=== PATIENT | male | born 1950 | race Caucasian/White ===

== ENCOUNTER 2020-07-04 15:23 | Emergency (ER) | payer BC, MEDICAID ==
[~2020-07-04] VITALS: Ht 165.1 cm; Wt 42.0 kg
[~2020-07-04 15:23] MED LIST: COMBIV
[2020-07-04] MEDS ORDERED: IPRATROPIUM BROMIDE (0.02%) 0.5MG/2.5ML NEB HHN STA (15:54)
[2020-07-04] MEDS ORDERED: ALBUTEROL (0.083%) 2.5MG/3ML NEB HHN STA (15:54)
[2020-07-04] MEDS ORDERED: PREDNISONE 20MG TABLET PO STA (15:54)
[2020-07-04 16:15] LABS: HEMATOCRIT. 38.3 % (42.0-52.0); HEMOGLOBIN. 13.6 g/dL (14.0-18.0); MEAN CORPUSCULAR HEMOGLOBIN 33.8 pg (28.0-32.0); MEAN CORPUSCULAR VOLUME 94.9 fL (80.0-94.0); MEAN PLATELET VOLUME 7.6 fl (7.4-10.4); PLATELET 169 x1000/uL (130-400); RED BLOOD CELL COUNT 4.04 mill/uL (4.7-6.1); RED CELL DISTRIBUTION WIDTH 13.7 % (11.6-14.6)
[2020-07-04] MEDS ORDERED: IPRATROPIUM BROMIDE (0.02%) 0.5MG/2.5ML NEB ONE (16:15)
[2020-07-04] MEDS ORDERED: ALBUTEROL (0.5%) 2.5MG/0.5ML NEB HHN ONE (16:15)
[2020-07-04 16:22] LABS: CHLORIDE 106 mEq/L (98-107)
[2020-07-04] MEDS ORDERED: MAGNESIUM 2 G PREMIX 50 ML IV ONE (17:30)
[2020-07-04] MEDS ORDERED: ALBUTEROL (0.083%) 2.5MG/3ML NEB HHN ONE (17:30)
[2020-07-04 17:59] LABS: PLATELET ESTIMATE NORMAL
[2020-07-04] MEDS ORDERED: ALBU18HF2 IH (20:47)
[2020-07-04] MEDS ORDERED: P20 MT (20:47)
[2020-07-04 21:30] VITALS: BP 139/86
== END 2020-07-04 22:50 | disposition home or self-care (01) ==
LOC: ER 15:23
DX: R06.02 Shortness of breath (principal); J44.9 Chronic obstructive pulmonary disease, unspecified; Z98.890 Other specified postprocedural states
CPT/HCPCS: 36415; 71045; 80053; 83880; 84484; 85025; 93005; 94640; 96365; 99285; J3475; J7512